=== PATIENT | female | born 1965 | race Caucasian/White ===

== ENCOUNTER 2017-05-20 15:15 | Emergency (ER) | payer SELFPAY ==
--- NOTE | 2017-05-20 16:23 | ER Document Report ---
ED Medical Screen (RME) - General Chief Complaint: Pain All Over Stated Complaint: HEADACHE/BACK AND NECK PAIN Time Seen by Provider: 05/20/17 16:15 TRAVEL OUTSIDE OF THE [place] IN LAST 30 DAYS: No - HPI Notes: 05/20/17 16:22 Patient recently traveled from [place] and arrived here a week ago states has a history osteoarthritis having severe neck pain bilateral hip pain back pain after trauma. Patient cannot give any details of the trauma. Patient also states coming in for sinus infection. Denies fever chills nausea vomiting - Related Data Allergies/Adverse Reactions: Sulfa (Sulfonamide Antibiotics) Allergy (Verified 05/20/17 16:22) Swelling of Throat sumatriptan [From Imitrex] Allergy (Verified 05/20/17 16:22) Swelling of Throat tramadol Adverse Reaction (Verified 05/20/17 16:22) Chest pain Past Medical History Renal/ Medical History: Denies: Hx Peritoneal Dialysis Review of Systems - Review of Systems Constitutional: Other - Arthralgias myalgias sinus Physical Exam - Vital signs Vitals: Temp Pulse Resp BP Pulse Ox 98.4 F 90 18 117/72 97 05/20/17 15:27 05/20/17 15:27 05/20/17 15:27 05/20/17 15:27 05/20/17 15:27 - Respiratory Respiratory status: No respiratory distress Chest status: Nontender Breath sounds: Normal Chest palpation: Normal Course - Vital Signs Vital signs: Temp Pulse Resp BP Pulse Ox 98.4 F 90 18 117/72 97 05/20/17 15:27 05/20/17 15:27 05/20/17 15:27 05/20/17 15:27 05/20/17 15:27
[2017-05-20 16:48] LABS: ABSOLUTE EOSINOPHILS # (AUTO) 0.2 10^3/uL (0.0-0.6); ABSOLUTE LYMPHOCYTES (AUTO) 3.6 10^3/uL (0.5-4.7); ABSOLUTE MONOCYTES (AUTO) 0.6 10^3/uL (0.1-1.4); ABSOLUTE NEUT (AUTO) 4.2 10^3/uL (1.7-8.2); BASOPHILS % (AUTO) 0.4 % (0-2); EOSINOPHILS % (AUTO) 2.1 % (0-6); HEMATOCRIT 42.6 % (36.0-47.0); HEMOGLOBIN 14.1 g/dL (12.0-15.5); HGB HCT DIFFERENCE -0.3; LYMPHOCYTES % (AUTO) 41.5 % (13-45); MEAN CORPUSCULAR HEMOGLOBIN 29.6 pg (27.0-33.4); MEAN CORPUSCULAR VOLUME 90 fl (80-97); MONOCYTES % (AUTO) 7.1 % (3-13); RED BLOOD COUNT 4.75 10^6/uL (3.72-5.28); RED CELL DISTRIBUTION WIDTH 13.3 % (11.5-14.0); SEGMENTED NEUTROPHILS % (AUTO) 48.9 % (42-78); WHITE BLOOD COUNT 8.7 10^3/uL (4.0-10.5)
[2017-05-20 16:53] LABS: APPEARANCE,URINE CLEAR; BILIRUBIN,URINE NEGATIVE (NEGATIVE); GLUCOSE, URINE NEGATIVE (NEGATIVE); KETONES,URINE NEGATIVE (NEGATIVE); LEUKOCYTE ESTERASE,URINE NEGATIVE (NEGATIVE); NITRITE,URINE NEGATIVE (NEGATIVE); PROTEIN,URINE NEGATIVE (NEGATIVE); URINE SPECIFIC GRAVITY 1.005; UROBILINOGEN,URINE NEGATIVE mg/dL (<2.0)
[2017-05-20 16:57] LABS: RBC,URINE 0-1 /HPF; WBC,URINE 0-1 /HPF
[2017-05-20 17:05] LABS: ANION GAP 11 (5-19); BLOOD UREA NITROGEN 11 mg/dL (7-20); CALCIUM 9.1 mg/dL (8.4-10.2); CARBON DIOXIDE 22 mmol/L (22-30); CHLORIDE 103 mmol/L (98-107); GLUCOSE 99 mg/dL (75-110); LIPASE 88.4 U/L (23-300); POTASSIUM 4.2 mmol/L (3.6-5.0); SODIUM 136.1 mmol/L (137-145)
[2017-05-20 17:15] LABS: URINE BARBITURATES SCREEN NEGATIVE; URINE METHADONE SCREEN NEGATIVE; URINE OPIATES LOW UNCONFIRMED POSITIVE; URINE PHENCYCLIDINE SCREEN NEGATIVE
--- NOTE | 2017-05-20 17:53 | RADIOLOGY REPORT (SQ) ---
EXAM DESCRIPTION: CERV SP 4 OR 5 VIEWS COMPLETED DATE/TIME: 05/20/2017 5:14 pm REASON FOR STUDY: pain COMPARISON: 06/07/2009 NUMBER OF VIEWS: Five views including obliques. TECHNIQUE: AP, lateral, obliques and odontoid radiographic images acquired of the cervical spine. LIMITATIONS: None. FINDINGS: MINERALIZATION: Normal. SEGMENTATION: Normal. ALIGNMENT: Anatomic. VERTEBRAE: Maintained height. No fracture or worrisome bone lesion. DISCS: Multilevel disc space narrowing with osteophytes. POSTERIOR ELEMENTS: Pedicles and facets are intact. No posterior arch defects. Facet arthropathy is present. FORAMINA: Narrowed at the levels of maximal disc and facet disease. HARDWARE: None in the spine. PARASPINAL SOFT TISSUES: Normal. OTHER: No other significant finding. IMPRESSION: Cervical disc disease. No acute findings. TECHNICAL DOCUMENTATION: JOB ID: [id number] [employer]- All Rights Reserved
--- NOTE | 2017-05-20 17:54 | RADIOLOGY REPORT (SQ) ---
EXAM DESCRIPTION: HIP BILATERAL COMPLETED DATE/TIME: 05/20/2017 5:14 pm REASON FOR STUDY: pain COMPARISON: None. NUMBER OF VIEWS: Two views. TECHNIQUE: AP pelvis and additional frog-leg view of the right and left hip. LIMITATIONS: None. FINDINGS: MINERALIZATION: Normal. PRIMARY HIP: No fracture or dislocation. No worrisome bone lesions. OPPOSITE HIP: No fracture or dislocation. No worrisome bone lesions. PUBIS AND ISCHIUM: No fracture. PELVIS: No fracture. SACRUM: No fracture or dislocation. No worrisome bone lesions. LOWER LUMBAR SPINE: No fracture or dislocation. No worrisome bone lesions. No significant disc disea se. SOFT TISSUES: No findings. OTHER: No other significant finding. IMPRESSION: NEGATIVE STUDY OF THE RIGHT AND LEFT HIPS AND PELVIS. NO RADIOGRAPHIC EVIDENCE OF ACUTE INJURY. TECHNICAL DOCUMENTATION: JOB ID: [id number] [employer]- All Rights Reserved
--- NOTE | 2017-05-20 17:55 | RADIOLOGY REPORT (SQ) ---
EXAM DESCRIPTION: L SPINE WHOLE COMPLETED DATE/TIME: 05/20/2017 5:14 pm REASON FOR STUDY: pain COMPARISON: 06/14/2009 NUMBER OF VIEWS: Five views including obliques. TECHNIQUE: AP, lateral, oblique, and sacral radiographic images acquired of the lumbar spine. LIMITATIONS: None. FINDINGS: MINERALIZATION: Normal. SEGMENTATION: Normal. No transitional anatomy. ALIGNMENT: Normal. VERTEBRAE: Maintained height. No fracture or worrisome bone lesion. DISCS: Preserved height. No significant osteophytes or end plate irregularity. POSTERIOR ELEMENTS: Pedicles and facets are intact. No pars defect or posterior arch defects. HARDWARE: None in the spine. PARASPINAL SOFT TISSUES: Normal. PELVIS: Intact as visualized. No fractures or worrisome bone lesions. SI joints intact. OTHER: No other significant finding. IMPRESSION: NORMAL 5 VIEW LUMBAR SPINE. TECHNICAL DOCUMENTATION: JOB ID: [id number] [employer]- All Rights Reserved
[2017-05-20] MEDS ORDERED: DEXAMETHASONE SOD PHOS INJ 10 MG/1 ML VIAL IM ONE (17:57)
[2017-05-20] MEDS ORDERED: MORPHINE SULFATE 10 MG/ML INJ IM ONE (17:58)
[2017-05-20] MEDS ORDERED: PROMETHAZINE HCL 25 MG TABLET PO ONE (17:58)
--- NOTE | 2017-05-20 18:13 | ER Document Report ---
ED General - General Chief Complaint: Pain All Over Stated Complaint: HEADACHE/BACK AND NECK PAIN Time Seen by Provider: 05/20/17 16:15 Mode of Arrival: Ambulatory Information source: Patient Notes: This is a 51-year-old female with a history of osteoporosis, arthritis, migraines who recently traveled from [place] to be with family. Patient presents with a flare of musculoskeletal pain involving the neck and back. Patient did run out of her medicines. She denies any fever, chills, nausea vomiting. She does admit to some sinus congestion but has not had any fever. She also has a history of migraines. This is not the worst headache of her life. Her neck is supple there is no photophobia. TRAVEL OUTSIDE OF THE [place] IN LAST 30 DAYS: No - HPI Onset: Just prior to arrival Onset/Duration: Gradual Quality of pain: Dull Severity: Moderate Pain Level: 2 Associated symptoms: denies: Chills, Fever, Shortness of breath Exacerbated by: Movement Relieved by: Remaining still Similar symptoms previously: Yes Recently seen / treated by doctor: No - Related Data Allergies/Adverse Reactions: Sulfa (Sulfonamide Antibiotics) Allergy (Verified 05/20/17 16:22) Swelling of Throat sumatriptan [From Imitrex] Allergy (Verified 05/20/17 16:22) Swelling of Throat tramadol Adverse Reaction (Verified 05/20/17 16:22) Chest pain Past Medical History - General Information source: Patient - Social History Smoking Status: Current Every Day Smoker Cigarette use (# per day): Yes - 1ppd Chew tobacco use (# tins/day): No Frequency of alcohol use: Rare Drug Abuse: None Lives with: Family Family History: Reviewed & Not Pertinent Patient has suicidal ideation: No Patient has homicidal ideation: No Pulmonary Medical History: Reports: Hx Bronchitis, Hx COPD Neurological Medical History: Reports: Hx Migraine Renal/ Medical History: Denies: Hx Peritoneal Dialysis Musculoskeltal Medical History: Reports Hx Arthritis Psychiatric Medical History: Reports: Hx Depression - & anxiety Past Surgical History: Reports: Hx Abdominal Surgery, Hx Appendectomy, Hx Cholecystectomy, Hx Tubal Ligation - Immunizations Hx Diphtheria, Pertussis, Tetanus Vaccination: Yes Review of Systems - Review of Systems Constitutional: denies: Chills, Fever EENT: See HPI Cardiovascular: No symptoms reported Respiratory: No symptoms reported Gastrointestinal: No symptoms reported Genitourinary: No symptoms reported Musculoskeletal: See HPI Skin: No symptoms reported Hematologic/Lymphatic: No symptoms reported Neurological/Psychological: See HPI Physical Exam - Vital signs Vitals: Temp Pulse Resp BP Pulse Ox 98.4 F 91 18 117/72 97 05/20/17 15:20 05/20/17 15:20 05/20/17 15:20 05/20/17 15:20 05/20/17 15:20 Notes: Physical exam: GENERAL: 51-year-old female, alert and oriented 3, no acute distress HEAD: Atraumatic, normocephalic. EYES: Pupils equal round and reactive to light, extraocular movements intact, sclera anicteric, conjunctiva are normal. ENT: TMs normal, nares patent, oropharynx clear without exudates. Moist mucous membranes. NECK: Normal range of motion, supple without lymphadenopathy or JVD. LUNGS: Breath sounds clear to auscultation bilaterally and equal. No wheezes rales or rhonchi. HEART: Regular rate and rhythm without murmurs, rubs or gallops. ABDOMEN: Soft, normoactive bowel sounds. No tenderness to palpation. No guarding, no rebound. No masses appreciated. EXTREMITIES: Normal range of motion, no pitting or edema. No clubbing or cyanosis. NEUROLOGICAL: Cranial nerves II through XII grossly intact. Normal speech, 5/5 , sensory grossly intact PSYCH: Normal mood, normal affect. SKIN: Warm, Dry, normal turgor, no rashes or lesions noted. Course - Vital Signs Vital signs: Temp Pulse Resp BP Pulse Ox 98.4 F 66 16 125/68 100 05/20/17 15:27 05/20/17 20:10 05/20/17 20:10 05/20/17 20:10 05/20/17 20:10 - Laboratory Result Diagrams: 05/20/17 16:32 05/20/17 16:32 Laboratory results interpreted by me: 05/20/17 16:32 Sodium 136.1 L - Diagnostic Test Radiology reviewed: Image reviewed, Reports reviewed - Is to the back extremities are clear Discharge - Discharge Clinical Impression: Musculoskeletal pain, arthritis flare, Migraine headache Condition: Stable Disposition: HOME, SELF-CARE Additional Instructions: Recommendations: Rest, drink plenty of fluids take medicines as prescribed. For the sinuses: Use nasal saline daily (saline spray at [facility]). This will open up the nasal passages. Probiotics twice daily: There is old next to the [employer]. I left the number for [facility] in town. Oftentimes, the ER will not prescribe her excessive prescriptions for pain medicine for chronic pain Prescriptions: Hydrocodone/Acetaminophen [[place] 5-325 mg Tablet] 1 tab PO Q6HP PRN #20 tablet PRN Reason: Methocarbamol [Robaxin 500 mg Tablet] 500 mg PO BID #30 tablet Prednisone [Deltasone 20 mg Tablet] 3 tab PO DAILY 5 Days Promethazine HCl [Phenergan 25 mg Tablet] 25 mg PO Q6H PRN #15 tablet PRN Reason: Referrals: EMILI WYATT MD [ACTIVE STAFF] - Follow up as needed (this is the Number for the [facility] [facility])
[2017-05-20 20:12] VITALS: BP 125/68
== END 2017-05-20 20:12 | disposition home or self-care (01) ==
LOC: ER 15:15
DX: G43.909 Migraine, unspecified, not intractable, without status migrainosus (principal); M19.90 Unspecified osteoarthritis, unspecified site; M81.0 Age-related osteoporosis without current pathological fracture; M54.2 Cervicalgia; M54.9 Dorsalgia, unspecified; R09.81 Nasal congestion; J44.9 Chronic obstructive pulmonary disease, unspecified; F17.210 Nicotine dependence, cigarettes, uncomplicated; Z88.2 Allergy status to sulfonamides; Z88.6 Allergy status to analgesic agent
CPT/HCPCS: 99283; 96372; 36415; 83690; 85025; 80048; 81001; 80307; 72050; 72110; 73522; J2270; J1100